=== PATIENT | female | born 1955 | race Caucasian/White ===

== ENCOUNTER 2020-07-22 08:39 | Inpatient (IN) ==
[2020-07-22] MEDS ORDERED: Famotidine IV 10 MG/ML 2 ml VIAL (20 mg) IV SLOW PU ONE (09:39)
[2020-07-22] MEDS ORDERED: Ondansetron 4 mg VIAL 2 MG/ML 2 ml VIAL IV ONE (09:39)
[2020-07-22] MEDS ORDERED: Lactated Ringers 1000 ml BAG 1,000 ML IV ONE (09:39)
[2020-07-22 10:27] LABS: ABS Lymphocytes 0.5 10^3/ul (1.0-4.8); ABS Monocytes 0.6 10^3/ul (0-0.8); ABS Neutrophils 6.1 10^3/ul (1.5-7.7); Eosinophil % 0.5 %; Hematocrit 41 % (35-47); Hemoglobin 14.1 g/dL (12.0-16.0); Lymphocyte % 7.4 %; Mean Corpuscular HGB Conc 35 g/dL (31-36); Mean Corpuscular Hemoglobin 31 pg (27-31); Mean Corpuscular Volume 90 fL (80-97); Mean Platelet Volume 8.5 fL (7.4-10.4); Nucleated Red Blood Cells % 0.2; Platelet Count 262 10^3/uL (150-450); Red Blood Count 4.48 10^6 /uL (3.70-4.87); Red Cell Distribution Width 14 % (10-15); White Blood Count 7.3 10^3/uL (3.5-10.8)
[2020-07-22 10:39] LABS: Influenza A Molecular Negative (Negative); Influenza B Molecular Negative (Negative)
[2020-07-22 10:49] LABS: ALT 42 U/L (7-52); AST 45 U/L (13-39); Albumin 3.5 g/dL (3.2-5.2); Alkaline Phosphatase 58 U/L (34-104); Anion Gap 9 mmol/L (2-11); BUN/Creatinine Ratio 25.6 (8-20); Blood Urea Nitrogen 22 mg/dL (6-24); CO2 Carbon Dioxide 26 mmol/L (22-32); Calcium 8.8 mg/dL (8.6-10.3); Chloride 104 mmol/L (101-111); EGFR African American 79.6 (>60); EGFR Non-African American 65.8 (>60); Globulin 3.4 g/dL (2-4); Glucose 104 mg/dL (70-100); Indirect Bilirubin 0.5 mg/dL (0.3-1.0); Lipase 55 U/L (11.0-82.0); Magnesium 2.1 mg/dL (1.9-2.7); Potassium 3.7 mmol/L (3.5-5.0); Sodium 139 mmol/L (135-145); Total Protein 6.9 g/dL (6.4-8.9); Troponin I 0.03 ng/mL (<0.03)
[2020-07-22] MEDS ORDERED: Iohexol 350 (CONTRAST) 500 ML MDV IV ONE (10:54)
[2020-07-22 12:25] LABS: LDH 417 U/L (140-271)
[2020-07-22 12:27] LABS: C Reactive Protein 57.34 mg/L (<8.01)
[2020-07-22] MEDS ORDERED: Ondansetron 4 mg VIAL 2 MG/ML 2 ml VIAL IV PRN (12:33)
[2020-07-22] MEDS ORDERED: Al Hydrox/Mg Hydrox/Simet LIQ 30 ML UDC PO PRN (12:33)
[2020-07-22 12:41] LABS: Activated Partial Thrombo Time 21.4 seconds (26.0-38.0); INR 1.18 (0.82-1.09)
[2020-07-22 12:42] LABS: Ferritin 1150.9 ng/mL (11-307)
[2020-07-22] MEDS ORDERED: Remdesivir 5 MG/ML LIQ IV Vial 200 MG in NS 0.9% 250 ml 210 ML IV ONE (14:00)
[2020-07-22] MEDS: NS 0.9% 1000 ml BAG 1,000 ML IV SCH (14:50)
[2020-07-22] MEDS: Enoxaparin 60 MG/0.6 ML SYR SUBCUT SCH (22:09)
[2020-07-23 06:44] LABS: ABS Lymphocytes 0.4 10^3/ul (1.0-4.8); ABS Monocytes 0.3 10^3/ul (0-0.8); ABS Neutrophils 2.9 10^3/ul (1.5-7.7); Eosinophil % 0.1 %; Hematocrit 35 % (35-47); Lymphocyte % 11.9 %; Mean Corpuscular HGB Conc 35 g/dL (31-36); Mean Corpuscular Hemoglobin 31 pg (27-31); Mean Corpuscular Volume 90 fL (80-97); Mean Platelet Volume 8.9 fL (7.4-10.4); Nucleated Red Blood Cells % 0.1; Platelet Count 247 10^3/uL (150-450); Red Blood Count 3.84 10^6 /uL (3.70-4.87); Red Cell Distribution Width 13 % (10-15); White Blood Count 3.7 10^3/uL (3.5-10.8)
[2020-07-23 07:09] LABS: BUN/Creatinine Ratio 31.9 (8-20); C Reactive Protein 57.08 mg/L (<8.01); Calcium 8.1 mg/dL (8.6-10.3); EGFR African American 102.7 (>60); EGFR Non-African American 84.9 (>60); Potassium 3.8 mmol/L (3.5-5.0)
[2020-07-23] MEDS: Enoxaparin 60 MG/0.6 ML SYR SUBCUT SCH ×2 (10:33→21:42)
[2020-07-23] MEDS: Cholecalciferol (VIT D3) 1,000 unit TAB PO SCH (10:33)
[2020-07-23 13:06] LABS: Albumin 2.9 g/dL (3.2-5.2); Globulin 2.8 g/dL (2-4); Indirect Bilirubin 0.3 mg/dL (0.3-1.0); Total Bilirubin 0.4 mg/dL (0.2-1.0); Total Protein 5.7 g/dL (6.4-8.9)
[2020-07-23] MEDS: Remdesivir 5 MG/ML LIQ IV Vial 100 MG in NS 0.9% 250 ml 230 ML IV SCH (17:17)
[2020-07-24] MEDS: NS 0.9% 1000 ml BAG 1,000 ML IV SCH ×2 (04:56→13:51)
[2020-07-24 07:47] LABS: ABS Neutrophils 7.8 10^3/ul (1.5-7.7); Hematocrit 37 % (35-47); Hemoglobin 12.5 g/dL (12.0-16.0); Lymphocyte % 9.8 %; Mean Corpuscular HGB Conc 33 g/dL (31-36); Mean Corpuscular Hemoglobin 31 pg (27-31); Mean Corpuscular Volume 92 fL (80-97); Mean Platelet Volume 9.2 fL (7.4-10.4); Nucleated Red Blood Cells % 0.1; Platelet Count 297 10^3/uL (150-450); Red Blood Count 4.06 10^6 /uL (3.70-4.87); Red Cell Distribution Width 14 % (10-15); White Blood Count 9.7 10^3/uL (3.5-10.8)
[2020-07-24 08:00] LABS: Albumin 2.9 g/dL (3.2-5.2); Calcium 8.2 mg/dL (8.6-10.3); EGFR African American 93.3 (>60); EGFR Non-African American 77.1 (>60); Globulin 2.9 g/dL (2-4); Indirect Bilirubin 0.3 mg/dL (0.3-1.0); Potassium 3.7 mmol/L (3.5-5.0); Total Bilirubin 0.4 mg/dL (0.2-1.0); Total Protein 5.8 g/dL (6.4-8.9)
[2020-07-24] MEDS: Cholecalciferol (VIT D3) 1,000 unit TAB PO SCH (10:32)
[2020-07-24] MEDS: Enoxaparin 60 MG/0.6 ML SYR SUBCUT SCH ×2 (10:41→23:24)
[2020-07-24] MEDS: Remdesivir 5 MG/ML LIQ IV Vial 100 MG in NS 0.9% 250 ml 230 ML IV SCH (16:06)
[2020-07-25 08:07] LABS: Albumin 2.9 g/dL (3.2-5.2); Globulin 2.8 g/dL (2-4); Indirect Bilirubin 0.4 mg/dL (0.3-1.0); Total Bilirubin 0.5 mg/dL (0.2-1.0); Total Protein 5.7 g/dL (6.4-8.9)
[2020-07-25] MEDS: Cholecalciferol (VIT D3) 1,000 unit TAB PO SCH (09:04)
[2020-07-25] MEDS: Enoxaparin 60 MG/0.6 ML SYR SUBCUT SCH ×2 (09:05→21:05)
[2020-07-25] MEDS: Remdesivir 5 MG/ML LIQ IV Vial 100 MG in NS 0.9% 250 ml 230 ML IV SCH (15:25)
[2020-07-26 07:16] LABS: Albumin 2.9 g/dL (3.2-5.2); Globulin 2.8 g/dL (2-4); Indirect Bilirubin 0.5 mg/dL (0.3-1.0); Total Bilirubin 0.6 mg/dL (0.2-1.0); Total Protein 5.7 g/dL (6.4-8.9)
[2020-07-26] MEDS: Enoxaparin 60 MG/0.6 ML SYR SUBCUT SCH (10:36)
[2020-07-26] MEDS: Cholecalciferol (VIT D3) 1,000 unit TAB PO SCH (10:37)
[2020-07-26 13:26] VITALS: BP 139/62
== END 2020-07-26 14:10 | disposition home or self-care (01) | DRG 177 ==
LOC: ED 08:39 → MED 12:33
PROVIDERS: ADMIT Pediatrics; ATTEND Internal Medicine